=== PATIENT | female | born 1990 | race Caucasian/White ===

== ENCOUNTER 2017-03-12 13:19 | Emergency (ER) | payer OTHER ==
[~2017-03-12] VITALS: Ht 160 cm; Wt 73.3 kg
[~2017-03-12 13:19] MED LIST: OXYC-57 PO
[2017-03-12 13:22] VITALS: TEMP 36.7; Ht 160 cm; Wt 73.3 kg
[2017-03-12] MEDS ORDERED: KETOROLAC TROMETHAMINE 60 MG/2 ML VIAL IM STA (14:04)
[2017-03-12] MEDS ORDERED: GABAPENTIN 100 MG CAP PO STA (14:04)
[2017-03-12] MEDS ORDERED: IBUP-1050 PO (14:05)
--- NOTE | 2017-03-12 15:18 | EMERGENCY ROOM VISIT NOTE ---
History Report prepared by Santhosh: Anne Marie Barr Under the Supervision of: Dr. Imelda Yusuf D.O. First contact with patient: 13:54 Chief Complaint: ARM PAIN Stated Complaint: RIGHT ARM EXTREME PAIN History of Present Illness The patient is a 27 year old female who presents to the Emergency Room with complaints of waxing and waning pain starting 2 days SCOUTS. The patient currently rates the pain as a 8/10 in severity. The patient states that the pain is worse after using her arm during the day and also feels stiff and sore in the morning when se wakes up. The patient states that if she rests her arm during the day the pain is not as severe. She states that she has not hit or injured her arm but states she thinks her right arm looks more swollen than usual. The patient denies any new activity, neck problem or shoulder problems in the past. The patient states that she also has finger numbness throughout all her finger on the right hand. The patient denies any fever chills or rashes or sores. The patient states that she has used Tylenol, ibuprofen, ice and heat and has not had any relief of her pain. The patient denies any similar pain in her left arm or hand. The patient denies any family history of rheumatoid issues. Patient [id number]. Source of History: patient Onset: 2 days SCOUTS Position: arm (right) Symptom Intensity: 8/10 Timing: waxes/wanes Associated Symptoms: No chills, No fevers, No rash Note: Patient denies any left arm or hand pain, sores. Review of Systems See HPI for pertinent positives & negatives. A total of 10 systems reviewed and were otherwise negative. Past Medical & Surgical Medical Problems: (1) Acute pancreatitis (2) Benign hypertension (3) Delivery normal (4) SCABIES Family History Patient reports no known family medical history. Social History Smoking Status: Current Every Day Smoker Marital Status: single Housing Status: lives with family Current/Historical Medications Scheduled PRN Gabapentin (Neurontin), 100 MG PO TID PRN for Pain Ibuprofen (Advil), 400-600 MG PO Q6H PRN for Pain Allergies Coded Allergies: No Known Allergies (Unverified , NONE, 03/12/17) Physical Exam Vital Signs Date Time Temp Pulse Resp B/P Pulse Ox O2 Delivery O2 Flow Rate FiO2 03/12/17 15:20 84 20 142/78 98 03/12/17 13:22 36.7 110 18 148/93 100 Room Air Physical Exam GENERAL: alert, well appearing, well nourished, no distress, non-toxic EYE EXAM: normal conjunctiva, PERRL and EOM's grossly intact OROPHARYNX: no exudate, no erythema, lips, buccal mucosa, and tongue normal and mucous membranes are moist NECK: supple, no nuchal rigidity, no adenopathy, non-tender LUNGS: Clear to auscultation. Normal chest wall mechanics HEART: no murmurs, S1 normal and S2 normal ABDOMEN: abdomen soft, non-tender, normo-active bowel sounds, no masses, no rebound or guarding. BACK: Back is symmetrical on inspection and there is no deformity, no midline tenderness, no CVA tenderness. SKIN: no rashes and no bruising UPPER EXTREMITIES: Right upper extremity with reproducible tenderness just distal to the elbow on the dorsal lateral aspect worse with extension of the wrist. Normal pulses, normal capillary reflexes, normal sensation. Subjective sensory alteration in the finger but objectively normal. No bony tenderness at the elbow. Compartments are soft, no ecchymosis, no sores, no rashes. LOWER EXTREMITIES: No pitting edema. NEURO EXAM: Normal sensorium, cranial nerves II-XII intact, normal speech, no weakness of arms, no weakness of legs. No drift. Finger to nose intact. Gross sensation intact. Medical Decision & Procedures Medications Administered Medications (Trade) Dose Ordered Sig/Lester Route Start Time Stop Time Status Last Admin Dose Admin Gabapentin (Neurontin Cap) 100 mg NOW STAT PO 03/12/17 14:04 03/12/17 14:06 DC 03/12/17 14:25 100 MG Ketorolac Tromethamine (Toradol Inj) 60 mg NOW STAT IM 03/12/17 14:04 03/12/17 14:06 DC 03/12/17 14:27 60 MG ED Course 1357: The patient was evaluated in room C5. A complete history and physical exam was performed. 1404: Ordered Toradol Inj 60 mg IM, Gabapentin 100 mg PO. 1511: Upon reevaluation, the patient is feeling better. I discussed the findings and the treatment plan with the patient. She verbalizes agreement and understanding. The patient was discharged home. Medical Decision The patient is a 27 year old female who presents to the ED with complaints of right arm pain. Differential diagnoses include but are not limited to tendonitis, muscle strain, peripheral neuropathy, and a contusion. Patient well-appearing here, no history of trauma, normal pulses and range of motion, normal objective sensory testing, no bony tenderness or joint effusion. Compartments are soft. No rashes or sores. Doubt compartment syndrome, acute arterial insufficiency, upper extremity DVT, fracture, septic arthritis, gout. Pain is reproducible and in the area of an extensor tendinitis or strain of her extensor muscle groups. Patient improved here following medications. Discussed follow-up with family doctor, symptoms watch and return for, she verbalized understanding was agreeable with plan. Impression Primary Impression: Arm pain, right Additional Impression: Musculoskeletal arm pain Scribe Attestation The scribe's documentation has been prepared under my direction and personally reviewed by me in its entirety. I confirm that the note above accurately reflects all work, treatment, procedures, and medical decision making performed by me. Departure Information Dispostion Home / Self-Care Prescriptions Gabapentin (Neurontin) 100 Mg Cap 100 MG PO TID Y for Pain, #20 CAP Prov: Imelda Yusuf, DO 03/12/17 Referrals No Doctor, Assigned (PCP) Forms HOME CARE DOCUMENTATION FORM, IMPORTANT VISIT INFORMATION Patient Instructions My [facility] Additional Instructions You may continue using Tylenol and ibuprofen as needed for pain. Do not take ibuprofen and an empty stomach and please make sure you're drinking plenty of water. Please avoid any strenuous activity with the right arm until you're feeling better. You may use the gabapentin as prescribed help additionally with pain. If you develop worsening pain, worsening swelling, discoloration of the arm or hand, persistent numbness or tingling, feel that the hand is colder than usual, noticed discoloration your fingers, have pain migrating towards her shoulder, you've any other new concerns, please return the emergency room. Problem Qualifiers Additional Impression: Musculoskeletal arm pain Laterality: right Qualified Codes: M79.601 - Pain in right arm
[2017-03-12] MEDS ORDERED: NRN/100 PO (15:19)
[2017-03-12 15:20] VITALS: BP 142/78; PULSE 84; O2SAT 98
== END 2017-03-12 15:40 | disposition home or self-care (01) ==
LOC: C.EDB 13:21 → C.EDC 15:40
DX: M79.601 Pain in right arm (principal); R20.0 Anesthesia of skin; I10 Essential (primary) hypertension; Z79.899 Other long term (current) drug therapy; Z87.898 Personal history of other specified conditions; F17.200 Nicotine dependence, unspecified, uncomplicated

== ENCOUNTER 2017-05-15 00:37 | Emergency (ER) | payer OTHER ==
[~2017-05-15] VITALS: Ht 160 cm; Wt 72.7 kg
[~2017-05-15 00:37] MED LIST changes: +IBUP-1050 PO; +NRN/100 PO; -OXYC-57 PO
[2017-05-15 00:41] VITALS: TEMP 36.8; Ht 160 cm; Wt 72.7 kg
[2017-05-15] MEDS ORDERED: KETOROLAC TROMETHAMINE 60 MG/2 ML VIAL IM STA (00:51)
--- NOTE | 2017-05-15 01:14 | EMERGENCY ROOM VISIT NOTE ---
History First contact with patient: 00:38 Chief Complaint: ARM PAIN Stated Complaint: LEFT ARM NERVE PINCHED History of Present Illness The patient is a 27 year old female who presents to the Emergency Room with complaints of left elbow forearm to thumb and second finger pain and tingling for the past 2 days after waking up in the morning. Patient states the pain is on the lateral aspect of her forearm starting at the lateral epicondyle to her thumb and second finger. No wrist drop. No humeral pain. No shoulder pain. Patient is unsure if she slept on the arm but the pain did wake her up and was first thing in the morning. Patient had this issue before. She believes it is a pinched nerve. She does a lot of repetitive activity with this arm. No direct trauma. Patient states she has difficulty moving her thumb. Patient denies chest pain, dyspnea, fever, chills, numbness, headache, fevers, cold symptoms, shoulder pain, neck pain, abdominal pain, joint swellings. This is her dominant arm. Review of Systems See HPI for pertinent positives & negatives. A total of 10 systems reviewed and were otherwise negative. Past Medical/Surgical History Medical Problems: (1) Acute pancreatitis (2) Benign hypertension (3) Delivery normal (4) SCABIES Family History Patient reports no known family medical history. Social History Smoking Status: Current Every Day Smoker Drug Use: none Marital Status: single Housing Status: lives with family Current/Historical Medications Scheduled PRN Gabapentin (Neurontin), 100 MG PO TID PRN for Pain Ibuprofen (Advil), 400-600 MG PO Q6H PRN for Pain Allergies Coded Allergies: No Known Allergies (Unverified , NONE, 05/15/17) Physical Exam Vital Signs Date Time Temp Pulse Resp B/P (MAP) Pulse Ox O2 Delivery O2 Flow Rate FiO2 05/15/17 00:41 36.8 78 24 153/106 94 Physical Exam VITALS: Vitals are noted on the nurse's note and reviewed by myself. Vital signs stable. GENERAL: Pleasant female, in no acute distress, nondiaphoretic, well-developed well-nourished. SKIN: Capillary reflex less than 2 seconds. HEENT: Normocephalic. PERRLA. EOMI. Nares patent. Mucous membranes moist. Neck is supple without nuchal rigidity. HEART: Regular rate and rhythm without murmurs gallops or rubs. LUNGS: Clear to auscultation bilaterally without wheezes, rales or rhonchi. No retractions or accessory muscle use. MUSCULOSKELETAL: No gross musculoskeletal defects. Left shoulder and humerus nontender to palpation. Left elbow lateral epicondyle tender to palpation. No forearm hand or finger tenderness. Patient is unable to give a thumbs up sign. Decreased strength with flexion and extension of the thumb. No wrist drop. Radial pulses +2 equal present bilaterally. Sensation is intact bilaterally. NEURO: Patient was alert and oriented to person place and time. Normal sensation to light and sharp touch. Deep tendon reflexes 2+ brachial radialis bilateral. No other focal neurological deficits. Medical Decision & Procedures Medications Administered Medications (Trade) Dose Ordered Sig/Lester Route Start Time Stop Time Status Last Admin Dose Admin Ketorolac Tromethamine (Toradol Inj) 60 mg NOW STAT IM 05/15/17 00:51 05/15/17 00:52 DC 05/15/17 00:58 60 MG Procedure ED Course Prior records reviewed and summarized above. Triage Nursing notes reviewed. The patient's history was concerning for left arm pain. Differential diagnosis: Etiologies such as nerve entrapment, fracture, tendinitis, DVT, musculoskeletal , infection, joint effusion, trauma, idiopathic, as well as others were entertained.. Physical examination: The physical examination revealed no signs of infection. Neurovascularly intact. ER treatment provided: Toradol On reassessment the patient felt better. Diagnostics interpreted by me: Imaging studies: Elbow x-ray with no acute fracture, dislocation or effusion per my interpretation Patient was placed in a thumb spica for comfort and neurovascular status was rechecked after placement and is intact. This appears to be consistent with left radial nerve entrapment. Patient has had this problem before. She difficulty with extension and flexion of the thumb so she was placed in a splint and advised follow-up orthopedics in a few days or here in the ER sooner for numbness, tingling, severe pain, worsening signs or symptoms or as needed. Patient is neurovascularly and neurologically intact. She is well-appearing. By the evaluation outlined above emergent etiologies such as DVT, septic joint, infection, as well as others were deemed relatively unlikely. The pt informed about the findings as listed above. All questions were answered and pleased with the treatment. Return instructions were outlined and the patient was discharged in stable condition. Outpatient prescription management: OxyIR Referral: The patient was referred back to their primary care physician and orthopedics for follow-up in 2 to 3 days for a recheck of the current condition. Medical Decision As above [place] Drug Monitoring Program Search Results: patient reviewed within database, see additional documentation (patient is on Suboxone) Impression Primary Impression: Radial nerve entrapment Departure Information Dispostion Home / Self-Care Condition GOOD Referrals No Doctor, Assigned (PCP) Patient Instructions My [facility] Additional Instructions Oxycodone (OxyIR) 5mg: Take 1-2 pills every four hours for breakthrough pain. Avoid alcohol, operating machinery or dangerous equipment, working on ladders or roofs, DRIVING, or situations where being under the influence may be dangerous. It is recommended to use an [id number] stool softener such as Colace, 100mg twice daily while taking this medication to avoid constipation. Ibuprofen(Motrin, Advil) may be used for fever or pain. Use 600mg every six hours as needed. Take with food. Avoid using more than 2400mg in a 24 hour period. Do not use 2400mg per day for more than three consecutive days without physician direction. Prolonged inappropriate use can lead to stomach upset or ulcers. This medication can be taken if you need to drive, work, or perform activities which may be dangerous when taking narcotic pain medication. (AND/OR) Acetaminophen(Tylenol) may be used for fever or pain. Use 1000mg every six hours as needed. Avoid using more than 3000mg in a 24 hour period. This medication can be taken if you need to drive, work, or perform activities which may be dangerous when taking narcotic pain medication. Rest and elevate your injury. Wear thumb spica for comfort. Do not have it so tight that you cannot feel your fingers. Continue current medications. Return to the ER immediately for any numbness, tingling, severe pain, extreme swelling in the extremity or as needed. Call Orthopedics tomorrow to arrange follow up. Problem Qualifiers Primary Impression: Radial nerve entrapment Laterality: left Qualified Codes: G56.32 - Lesion of radial nerve, left upper limb
[2017-05-15] MEDS ORDERED: OXYCODONE IR HOME PACK PO ONE (01:15)
[2017-05-15 01:27] VITALS: BP 163/112; PULSE 76; O2SAT 97
--- NOTE | 2017-05-15 06:56 | DIAGNOSTIC IMAGING REPORT ---
LEFT ELBOW MIN 3 VIEWS ROUTINE CLINICAL HISTORY: left elbow/FA pain pain COMPARISON: None. DISCUSSION: The bones and joint spaces appear intact. There is no evidence of fracture, dislocation or bony disease. There is no evidence for soft tissue swelling. IMPRESSION: Negative study. The above report was generated using voice recognition software. It may contain grammatical, syntax or spelling errors. Electronically signed by: Don Perera M.D. 05/15/2017 6:55 AM Dictated Date/Time: 05/15/2017 6:54 AM
== END 2017-05-15 01:28 | disposition home or self-care (01) ==
LOC: C.EDB 00:38 → C.EDA 01:28
DX: G56.32 Lesion of radial nerve, left upper limb (principal); I10 Essential (primary) hypertension; F17.210 Nicotine dependence, cigarettes, uncomplicated; Z79.899 Other long term (current) drug therapy